=== PATIENT | male | born 1965 | race American Indian/Alaskan Native ===

== ENCOUNTER 2021-02-18 10:39 | Outpatient (CLI) | payer OTHER ==
--- NOTE | 2021-02-18 12:02 | XRay Report ---
CERVICAL SPINE 5 VIEWS INDICATION: Cervical radiculopathy. COMPARISON: No relevant prior imaging study available. FINDINGS: C7 is not well visualized due to the patient's body habitus. VERTEBRAE: No acute fracture. Normal alignment. DISC SPACES: Multilevel mild discogenic degenerative changes are present. FACET JOINTS: No significant abnormality. SOFT TISSUES: No significant abnormality. ADDITIONAL FINDINGS: No additional significant findings. IMPRESSION: Mild cervical spondylosis. Signer Name: Toribio Sebastian MD Signed: 02/18/2021 11:52 AM Workstation Name: [id number]
== END 2021-02-18 10:40 | disposition home or self-care (01) ==
LOC: XRAY 10:39
PROVIDERS: ATTEND Internal Medicine
DX: M47.22 Other spondylosis with radiculopathy, cervical region (principal)
CPT/HCPCS: 72040

== ENCOUNTER 2021-12-06 14:44 | Emergency (ER) | payer MEDICARE, OTHER ==
[2021-12-06 20:31] LABS: Basophils # (Auto) 0.1 K/mm3 (0.0-0.1); Basophils % (Auto) 0.7 % (0.0-1.8); Eosinophils % (Auto) 0.2 % (0.0-4.3); Hematocrit 47.4 % (35.5-45.6); Hemoglobin 15.4 gm/dl (11.8-15.2); Lymphocytes # (Auto) 1.7 K/mm3 (1.2-5.4); Mean Corpuscular HGB Conc 33 % (32-34); Mean Corpuscular Volume 78 fl (84-94); Monocytes # (Auto) 0.8 K/mm3 (0.0-0.8); Platelet Count 214 K/mm3 (140-440); Red Blood Count 6.11 M/mm3 (3.65-5.03); Red Cell Distribution Width 16.7 % (13.2-15.2)
[2021-12-06 20:42] LABS: Albumin 4.7 g/dL (3.9-5); Calcium 9.8 mg/dL (8.4-10.2)
[2021-12-06] MEDS ORDERED: ONDANSETRON 4 MG/2 ML INJ IV STA (21:03)
[2021-12-06] MEDS ORDERED: SODIUM CHLORIDE 0.9% 1000 ML 1,000 ML IV ONE (21:03)
[2021-12-06] MEDS ORDERED: MORPHINE 4 MG/1 ML INJ IV STA (21:03)
--- NOTE | 2021-12-06 21:10 | Emergency Department Report ---
ED Abdominal Pain HPI - General Chief Complaint: Abdominal Pain Stated Complaint: BACK/RT SIDE FLANK PAIN/UTI Time Seen by Provider: 12/06/21 20:50 Source: patient Mode of arrival: Ambulatory Limitations: No Limitations - History of Present Illness MD Complaint: flank pain -: Gradual, days(s) (2) Location: R flank Radiation: suprapubic, R flank Migration to: no migration Severity: moderate Quality: dull Consistency: constant - Related Data Previous Rx's Medication Instructions Recorded Last Taken Type Ketorolac [Toradol] 10 mg PO Q6H PRN #15 tablet 12/07/21 Unknown Rx Nitrofurantoin [place]/M-Cryst 100 mg PO Q12HR #20 capsule 12/07/21 Unknown Rx [Macrobid CAP] Tamsulosin [Flomax] 0.4 mg PO QDAY #10 cap 12/07/21 Unknown Rx Allergies Allergy/AdvReac Type Severity Reaction Status Date / Time No Known Allergies Allergy Verified 12/06/21 14:59 ED Review of Systems ROS: Stated complaint: BACK/RT SIDE FLANK PAIN/UTI Other details as noted in HPI Comment: All other systems reviewed and negative ED Past Medical Hx - Medications Home Medications: Home Medications Medication Instructions Recorded Confirmed Last Taken Type Ketorolac [Toradol] 10 mg PO Q6H PRN #15 tablet 12/07/21 Unknown Rx Nitrofurantoin [place]/M-Cryst 100 mg PO Q12HR #20 capsule 12/07/21 Unknown Rx [Macrobid CAP] Tamsulosin [Flomax] 0.4 mg PO QDAY #10 cap 12/07/21 Unknown Rx ED Physical Exam - General Limitations: No Limitations General appearance: alert, in no apparent distress, other - Head Head exam: Present: atraumatic, normocephalic, normal inspection - Eye Eye exam: Present: normal appearance, PERRL, EOMI Pupils: Present: normal accommodation - ENT ENT exam: Present: normal exam, normal orophraynx, mucous membranes moist - Neck Neck exam: Present: normal inspection - Respiratory Respiratory exam: Present: normal lung sounds bilaterally. Absent: respiratory distress - Cardiovascular Cardiovascular Exam: Present: regular rate, normal rhythm. Absent: systolic murmur, diastolic murmur, rubs, gallop - GI/Abdominal GI/Abdominal exam: Present: soft, tenderness, normal bowel sounds. Absent: rebound, rigid, organomegaly, mass, bruit, pulsatile mass - Rectal Rectal exam: Present: deferred - Extremities Exam Extremities exam: Present: normal inspection - Back Exam Back exam: Present: normal inspection, CVA tenderness (R). Absent: muscle spasm, paraspinal tenderness - Neurological Exam Neurological exam: Present: alert, oriented X3, CN II-XII intact, normal gait - Psychiatric Psychiatric exam: Present: normal affect, normal mood - Skin Skin exam: Present: warm, dry, intact, normal color. Absent: rash ED Course Vital Signs 12/06/21 15:01 Temperature 98.6 F Pulse Rate 101 H Respiratory 20 Rate Blood Pressure 171/88 O2 Sat by Pulse 96 Oximetry ED Medical Decision Making - Lab Data Result diagrams: 12/06/21 19:51 12/06/21 19:51 - Radiology Data Radiology results: report reviewed [place] [id number] Cat Scan Report Signed Patient: URIEL WILLIS III MR#: [id number] [birth year] Acct:[id number] Age/Sex: 56 / M ADM Date: 12/06/21 Loc: ED Attending Dr: Ordering Physician: JULIANNA OGDEN Date of Service: 12/06/21 Procedure(s): CT abdomen pelvis wo con Accession Number(s): [id number] cc: JULIANNA OGDEN CT ABDOMEN AND PELVIS WITHOUT CONTRAST INDICATION / CLINICAL INFORMATION: flank and right pelvic pain. TECHNIQUE: Axial CT images were obtained through the abdomen and pelvis without IV contrast. All CT scans at this location are performed using CT dose reduction for ALARA by means of automated exposure control. COMPARISON: CT of abdomen 08/06/2008 FINDINGS: LOWER CHEST: No significant abnormality of the imaged chest. LIVER: Mild hepatic steatosis is suggested. GALLBLADDER / BILE DUCTS: No significant abnormality. Biliary ducts grossly unremarkable. SPLEEN: No significant abnormality. PANCREAS: No significant abnormality. ADRENALS: No significant abnormality. KIDNEYS/URETERS: 2-3 mm stone just within the right UVJ with residual mild hydronephrosis of the right kidney. Additional 6 to 7 mm stone lower pole right kidney. Right kidney demonstrates an ex ophytic region of soft tissue attenuation measuring 1.3 cm. Left kidney demonstrates parapelvic cysts versus prominence of the lower calyceal system. STOMACH / DUODENUM / SMALL BOWEL: The stomach, duodenum, and small bowel demonstrate no significant abnormality. No specific abnormality of the mesentery demonstrated. COLON: No significant abnormality. APPENDIX: No significant abnormality. PERITONEUM: No free air or free fluid are present within the abdomen or pelvis. LYMPH NODES: No significant adenopathy. AORTA / ARTERIES: No significant abnormality. IVC / VEINS: No significant abnormality. URINARY BLADDER: Decompressed. REPRODUCTIVE ORGANS: No significant abnormality. ADDITIONAL ABDOMINAL/PELVIC FINDINGS: None. SKELETAL SYSTEM: No significant abnormality. IMPRESSION: 1. Small stone just within the right UVJ with some residual hydronephrosis of the right collecting system. Findings are most suggestive of recently passed stone. 2. Additional lower pole stone right kidney. 3. Prominent calyceal system of the left kidney versus parapelvic cysts. 4. Additional new exophytic soft tissue structure posterolateral cortex right kidney as detailed. Small solid cortical neoplasm cannot be excluded. Ultrasound might be useful to exclude hemorrhagic cyst. Signer Name: Diana Jules II, MD Signed: 12/06/2021 11:41 PM Workstation Name: [id number] Transcribed By: [place] Dictated By: DIANA JULES II, MD Electronically Authenticated By: DIANA JULES II, MD Signed Date/Time: 12/06/21 234 DD/ 37 TD/TT: - Medical Decision Making Clinically the patient presents with nephrolithasis. IV pain medications, antiemetics, and IV fluids were given. A CT Abdomen/Pelvis was obtained for concern for a possible obstructing kidney stone and to rule out other pathologic conditions. The CT confirmed revealed a stone at right t XXX. The patient's labs were significant for no significant issues. With pain medication the patient improved significantly. The patient is referred to the on-call urologist for follow up and is discharged with oral narcotics for pain control, Flomax, antiemetics, and given the following return precautions: Fever > 100.5, pain not controlled with narcotics, vomiting or any other concerns and to strain the urine Critical care attestation.: If time is entered above; I have spent that time in minutes in the direct care of this critically ill patient, excluding procedure time. ED Disposition Clinical Impression: Kidney stone on right side Disposition: HOME / SELF CARE / HOMELESS Is pt being admited?: No Does the pt Need Aspirin: No Condition: Stable Instructions: Low-Purine Eating Plan, Renal Colic, [id number], Kidney Stones, [id number], Kidney Stones, Laser Therapy for Kidney Stones, Care After Referrals: PRIMARY CARE, [Primary Care Provider] - 3-5 Days [facility] [Provider Group] - 3-5 Days
--- NOTE | 2021-12-06 23:45 | Cat Scan Report ---
CT ABDOMEN AND PELVIS WITHOUT CONTRAST INDICATION / CLINICAL INFORMATION: flank and right pelvic pain. TECHNIQUE: Axial CT images were obtained through the abdomen and pelvis without IV contrast. All CT scans at this location are performed using CT dose reduction for ALARA by means of automated exposure control. COMPARISON: CT of abdomen 08/06/2008 FINDINGS: LOWER CHEST: No significant abnormality of the imaged chest. LIVER: Mild hepatic steatosis is suggested. GALLBLADDER / BILE DUCTS: No significant abnormality. Biliary ducts grossly unremarkable. SPLEEN: No significant abnormality. PANCREAS: No significant abnormality. ADRENALS: No significant abnormality. KIDNEYS/URETERS: 2-3 mm stone just within the right UVJ with residual mild hydronephrosis of the righ t kidney. Additional 6 to 7 mm stone lower pole right kidney. Right kidney demonstrates an exophytic region of soft tissue attenuation measuring 1.3 cm. Left kidney demonstrates parapelvic cysts versus prominence of the lower calyceal system. STOMACH / DUODENUM / SMALL BOWEL: The stomach, duodenum, and small bowel demonstrate no significant a bnormality. No specific abnormality of the mesentery demonstrated. COLON: No significant abnormality. APPENDIX: No significant abnormality. PERITONEUM: No free air or free fluid are present within the abdomen or pelvis. LYMPH NODES: No significant adenopathy. AORTA / ARTERIES: No significant abnormality. IVC / VEINS: No significant abnormality. URINARY BLADDER: Decompressed. REPRODUCTIVE ORGANS: No significant abnormality. ADDITIONAL ABDOMINAL/PELVIC FINDINGS: None. SKELETAL SYSTEM: No significant abnormality. IMPRESSION: 1. Small stone just within the right UVJ with some residual hydronephrosis of the right collecting sy stem. Findings are most suggestive of recently passed stone. 2. Additional lower pole stone right kidney. 3. Prominent calyceal system of the left kidney versus parapelvic cysts. 4. Additional new exophytic soft tissue structure posterolateral cortex right kidney as detailed. Sma ll solid cortical neoplasm cannot be excluded. Ultrasound might be useful to exclude hemorrhagic cyst . Signer Name: Corey Jules II, MD Signed: 12/06/2021 11:41 PM Workstation Name: [id number]
[2021-12-07 01:42] VITALS: BP 162/86
[2021-12-08 11:26] LABS: Bilirubin,Urine NEG (Negative); Blood,Urine SM (Negative); Color,Urine Yellow (Yellow); Mucus,Urine 1+ /HPF; Urobilinogen,Urine < 2.0 mg/dL (<2.0)
== END 2021-12-07 01:42 | disposition home or self-care (01) ==
LOC: ED 14:44
DX: N20.0 Calculus of kidney (principal)
CPT/HCPCS: 36415; 74176; 80053; 81001; 83690; 85025; 96361; 96374; 96375; 99284; J2270; J2405; J7030